=== PATIENT | male | born 1945 | race Caucasian/White ===

== ENCOUNTER 2024-05-08 12:25 | Emergency (ER) | payer MEDICARE ==
[~2024-05-08] VITALS: Ht 182.9 cm; Wt 83.9 kg
[2024-05-08 17:29] LABS: BASOPHILS ABSOLUTE AUTO 0.07 K/mm3 (0.00-0.23); BASOPHILS PERCENT AUTO 1 % (0-2); EOSINOPHILS ABSOLUTE AUTO 0.58 K/mm3 (0.00-0.68); EOSINOPHILS PERCENT AUTO 5 % (0-6); Hematocrit 34.4 % (37.0-53.0); IMMATURE GRAN ABSOLUTE AUTO 0.15 K/mm3 (0.00-0.10); IMMATURE GRAN PERCENT AUTO 1 % (0-1); LYMPHOCYTES ABSOLUTE AUTO 2.02 K/mm3 (0.84-5.20); LYMPHOCYTES PERCENT AUTO 17 % (21-46); MONOCYTES ABSOLUTE AUTO 0.86 K/mm3 (0.16-1.47); MONOCYTES PERCENT AUTO 7 % (4-13); Mean Corpuscular HGB 34.6 pg (26.0-34.0); Mean Corpuscular HGB Conc 34.9 g/dL (31.5-36.5); Mean Corpuscular Volume 99 fL (80-100); NEUTROPHILS ABSOLUTE AUTO 8.32 K/mm3 (1.96-9.15); NEUTROPHILS PERCENT AUTO 69 % (41-73); Platelet Count 160 K/mm3 (150-400); RDW Coefficient Variation 14.5 % (11.7-14.2); RDW Standard Deviation 52.5 fL (35.1-46.3); Red Blood Cell Count 3.47 M/mm3 (4.30-5.90)
[2024-05-08 17:48] LABS: Albumin, Blood 3.2 g/dL (3.4-5.0); Albumin/Globulin Ratio 0.8 (0.8-1.8); Bilirubin, Total 0.8 mg/dL (0.1-1.0); Bun/Creatinine Ratio 18.7 (12.0-20.0); Calcium, Blood 9.3 mg/dL (8.5-10.1); Creatinine, Blood 0.86 mg/dL (0.60-1.20); Globulin, Blood 3.8 g/dL (2.2-4.0); Potassium, Blood 3.7 mmol/L (3.5-5.5)
== END 2024-05-08 20:43 | disposition short-term general hospital (02) ==
LOC: ER 12:25
PROVIDERS: Emergency Medicine
DX: G06.2 Extradural and subdural abscess, unspecified (principal)
CPT/HCPCS: 36415; 70450; 80053; 85025; 99284-25

== ENCOUNTER → 2024-05-13 | Outpatient (CLI) | payer MEDICARE ==
[2024-05-13 19:43] LABS: Hematocrit 25.1 % (37.0-53.0); Hemoglobin 8.5 g/dL (13.5-17.5); Mean Corpuscular HGB 33.9 pg (26.0-34.0); Mean Corpuscular HGB Conc 33.9 g/dL (31.5-36.5); Mean Corpuscular Volume 100 fL (80-100); Mean Platelet Volume 10.6 fL (9.1-12.4); Platelet Count 150 K/mm3 (150-400); RDW Coefficient Variation 14.2 % (11.7-14.2); RDW Standard Deviation 51.6 fL (35.1-46.3); Red Blood Cell Count 2.51 M/mm3 (4.30-5.90); White Blood Cell Count 7.85 K/mm3 (4.00-11.30)
[2024-05-13 20:06] LABS: C-REACTIVE PROTEIN, EXT RANGE 1.05 mg/dL (0.000-0.300)
[2024-05-13 20:09] LABS: Albumin, Blood 2.6 g/dL (3.4-5.0); Albumin/Globulin Ratio 0.9 (0.8-1.8); Bilirubin, Total 0.7 mg/dL (0.1-1.0); Bun/Creatinine Ratio 20.7 (12.0-20.0); Calcium, Blood 8.6 mg/dL (8.5-10.1); Creatinine, Blood 0.82 mg/dL (0.60-1.20); Globulin, Blood 2.8 g/dL (2.2-4.0); Potassium, Blood 3.9 mmol/L (3.5-5.5); Total Protein, Blood 5.4 g/dL (6.4-8.2)
== END | disposition home or self-care (01) ==
LOC: LAB 18:26 → LAB SHORT 18:26
PROVIDERS: Family Medicine
DX: G06.2 Extradural and subdural abscess, unspecified (principal)
CPT/HCPCS: 80053; 85027; 86140

== ENCOUNTER → 2024-05-17 | Outpatient (CLI) | payer MEDICARE ==
[2024-05-17 19:11] LABS: BASOPHILS ABSOLUTE AUTO 0.05 K/mm3 (0.00-0.23); BASOPHILS PERCENT AUTO 1 % (0-2); EOSINOPHILS ABSOLUTE AUTO 0.32 K/mm3 (0.00-0.68); EOSINOPHILS PERCENT AUTO 5 % (0-6); Hematocrit 25.1 % (37.0-53.0); Hemoglobin 8.5 g/dL (13.5-17.5); IMMATURE GRAN ABSOLUTE AUTO 0.21 K/mm3 (0.00-0.10); IMMATURE GRAN PERCENT AUTO 3 % (0-1); LYMPHOCYTES ABSOLUTE AUTO 0.91 K/mm3 (0.84-5.20); LYMPHOCYTES PERCENT AUTO 13 % (21-46); MONOCYTES ABSOLUTE AUTO 0.66 K/mm3 (0.16-1.47); MONOCYTES PERCENT AUTO 10 % (4-13); Mean Corpuscular HGB 34.1 pg (26.0-34.0); Mean Corpuscular HGB Conc 33.9 g/dL (31.5-36.5); Mean Corpuscular Volume 101 fL (80-100); Mean Platelet Volume 10.7 fL (9.1-12.4); NEUTROPHILS ABSOLUTE AUTO 4.74 K/mm3 (1.96-9.15); NEUTROPHILS PERCENT AUTO 69 % (41-73); Platelet Count 158 K/mm3 (150-400); RDW Coefficient Variation 14.6 % (11.7-14.2); RDW Standard Deviation 52.2 fL (35.1-46.3); Red Blood Cell Count 2.49 M/mm3 (4.30-5.90); White Blood Cell Count 6.89 K/mm3 (4.00-11.30)
[2024-05-17 21:03] LABS: Albumin, Blood 2.8 g/dL (3.4-5.0); Bilirubin, Total 0.5 mg/dL (0.1-1.0); Bun/Creatinine Ratio 22.2 (12.0-20.0); C-REACTIVE PROTEIN, EXT RANGE 0.486 mg/dL (0.000-0.300); Calcium, Blood 8.9 mg/dL (8.5-10.1); Creatinine, Blood 0.77 mg/dL (0.60-1.20); Globulin, Blood 2.9 g/dL (2.2-4.0); Potassium, Blood 4.1 mmol/L (3.5-5.5); Total Protein, Blood 5.7 g/dL (6.4-8.2)
== END ==
LOC: LAB 18:17 → LAB SHORT 18:17
PROVIDERS: Physician Assistant
DX: G06.2 Extradural and subdural abscess, unspecified (principal); Z79.2 Long term (current) use of antibiotics
CPT/HCPCS: 80053; 85025; 86140

== ENCOUNTER → 2024-05-24 | Outpatient (CLI) | payer MEDICARE ==
[2024-05-24 13:22] LABS: BASOPHILS ABSOLUTE AUTO 0.06 K/mm3 (0.00-0.23); BASOPHILS PERCENT AUTO 1 % (0-2); EOSINOPHILS ABSOLUTE AUTO 0.24 K/mm3 (0.00-0.68); EOSINOPHILS PERCENT AUTO 4 % (0-6); Hematocrit 27.7 % (37.0-53.0); Hemoglobin 9.3 g/dL (13.5-17.5); IMMATURE GRAN ABSOLUTE AUTO 0.07 K/mm3 (0.00-0.10); IMMATURE GRAN PERCENT AUTO 1 % (0-1); LYMPHOCYTES ABSOLUTE AUTO 0.91 K/mm3 (0.84-5.20); LYMPHOCYTES PERCENT AUTO 17 % (21-46); MONOCYTES ABSOLUTE AUTO 0.46 K/mm3 (0.16-1.47); MONOCYTES PERCENT AUTO 8 % (4-13); Mean Corpuscular HGB 33.8 pg (26.0-34.0); Mean Corpuscular HGB Conc 33.6 g/dL (31.5-36.5); Mean Corpuscular Volume 101 fL (80-100); Mean Platelet Volume 10.1 fL (9.1-12.4); NEUTROPHILS ABSOLUTE AUTO 3.75 K/mm3 (1.96-9.15); NEUTROPHILS PERCENT AUTO 68 % (41-73); Platelet Count 126 K/mm3 (150-400); RDW Coefficient Variation 15.9 % (11.7-14.2); RDW Standard Deviation 57.7 fL (35.1-46.3); Red Blood Cell Count 2.75 M/mm3 (4.30-5.90); White Blood Cell Count 5.49 K/mm3 (4.00-11.30)
[2024-05-24 14:27] LABS: Alanine Aminotransfer (ALT/SGP 40 U/L (12-78); Albumin, Blood 2.9 g/dL (3.4-5.0); Albumin/Globulin Ratio 0.9 (0.8-1.8); Alk Phos 102 U/L (50-136); Anion Gap 8 mmol/L (3-11); Aspartate Aminotrans (AST/SGOT 33 U/L (12-37); Bilirubin, Total 0.5 mg/dL (0.1-1.0); Blood Urea Nitrogen 17 mg/dL (8-24); Bun/Creatinine Ratio 21.2 (12.0-20.0); C-REACTIVE PROTEIN, EXT RANGE <0.290 mg/dL (0.000-0.300); CO2, Blood 26 mmol/L (21-32); Calcium, Blood 8.8 mg/dL (8.5-10.1); Chloride, Blood 115 mmol/L (98-108); Globulin, Blood 3.3 g/dL (2.2-4.0); Glomerular Filtration Rate 90 (60-); Glucose, Blood 126 mg/dL (70-99); Potassium, Blood 4.2 mmol/L (3.5-5.5); Sodium, Blood 145 mmol/L (136-145); Total Protein, Blood 6.2 g/dL (6.4-8.2)
== END | disposition home or self-care (01) ==
LOC: LAB SHORT 12:17 → LAB 12:17
PROVIDERS: Physician Assistant
DX: G06.2 Extradural and subdural abscess, unspecified (principal); Z79.2 Long term (current) use of antibiotics
CPT/HCPCS: 80053; 85025; 86140

== ENCOUNTER → 2024-05-31 | Outpatient (CLI) | payer MEDICARE ==
[2024-05-31 14:22] LABS: BASOPHILS ABSOLUTE AUTO 0.06 K/mm3 (0.00-0.23); BASOPHILS PERCENT AUTO 1 % (0-2); EOSINOPHILS ABSOLUTE AUTO 0.31 K/mm3 (0.00-0.68); EOSINOPHILS PERCENT AUTO 5 % (0-6); Hematocrit 27.8 % (37.0-53.0); Hemoglobin 9.3 g/dL (13.5-17.5); IMMATURE GRAN ABSOLUTE AUTO 0.08 K/mm3 (0.00-0.10); IMMATURE GRAN PERCENT AUTO 1 % (0-1); LYMPHOCYTES ABSOLUTE AUTO 0.93 K/mm3 (0.84-5.20); LYMPHOCYTES PERCENT AUTO 16 % (21-46); MONOCYTES ABSOLUTE AUTO 0.66 K/mm3 (0.16-1.47); MONOCYTES PERCENT AUTO 11 % (4-13); Mean Corpuscular HGB 34.2 pg (26.0-34.0); Mean Corpuscular HGB Conc 33.5 g/dL (31.5-36.5); Mean Corpuscular Volume 102 fL (80-100); Mean Platelet Volume 11.1 fL (9.1-12.4); NEUTROPHILS ABSOLUTE AUTO 3.94 K/mm3 (1.96-9.15); NEUTROPHILS PERCENT AUTO 66 % (41-73); Platelet Count 94 K/mm3 (150-400); RDW Coefficient Variation 15.9 % (11.7-14.2); RDW Standard Deviation 59.4 fL (35.1-46.3); Red Blood Cell Count 2.72 M/mm3 (4.30-5.90); White Blood Cell Count 5.98 K/mm3 (4.00-11.30)
[2024-05-31 15:06] LABS: Albumin, Blood 2.9 g/dL (3.4-5.0); Bilirubin, Total 0.4 mg/dL (0.1-1.0); Bun/Creatinine Ratio 22.3 (12.0-20.0); Calcium, Blood 9.1 mg/dL (8.5-10.1); Creatinine, Blood 0.72 mg/dL (0.60-1.20); Potassium, Blood 3.9 mmol/L (3.5-5.5); Total Protein, Blood 5.9 g/dL (6.4-8.2)
== END ==
LOC: LAB SHORT 10:38 → LAB 10:38
PROVIDERS: Student in an Organized Health Care Education/Training Program
DX: T81.41XA Infection following a procedure, superficial incisional surgical site, initial encounter (principal); Z79.2 Long term (current) use of antibiotics; G06.2 Extradural and subdural abscess, unspecified
CPT/HCPCS: 80053; 85025; 86140

== ENCOUNTER → 2024-06-07 | Outpatient (CLI) | payer MEDICARE ==
[2024-06-07 18:51] LABS: BASOPHILS ABSOLUTE AUTO 0.06 K/mm3 (0.00-0.23); BASOPHILS PERCENT AUTO 1 % (0-2); EOSINOPHILS ABSOLUTE AUTO 0.23 K/mm3 (0.00-0.68); EOSINOPHILS PERCENT AUTO 4 % (0-6); Hematocrit 30.5 % (37.0-53.0); Hemoglobin 10.2 g/dL (13.5-17.5); IMMATURE GRAN ABSOLUTE AUTO 0.05 K/mm3 (0.00-0.10); IMMATURE GRAN PERCENT AUTO 1 % (0-1); LYMPHOCYTES ABSOLUTE AUTO 0.99 K/mm3 (0.84-5.20); LYMPHOCYTES PERCENT AUTO 18 % (21-46); MONOCYTES ABSOLUTE AUTO 0.53 K/mm3 (0.16-1.47); MONOCYTES PERCENT AUTO 10 % (4-13); Mean Corpuscular HGB 34.5 pg (26.0-34.0); Mean Corpuscular HGB Conc 33.4 g/dL (31.5-36.5); Mean Corpuscular Volume 103 fL (80-100); Mean Platelet Volume 11.2 fL (9.1-12.4); NEUTROPHILS ABSOLUTE AUTO 3.56 K/mm3 (1.96-9.15); NEUTROPHILS PERCENT AUTO 66 % (41-73); Platelet Count 94 K/mm3 (150-400); RDW Coefficient Variation 15.9 % (11.7-14.2); RDW Standard Deviation 59.5 fL (35.1-46.3); Red Blood Cell Count 2.96 M/mm3 (4.30-5.90); White Blood Cell Count 5.42 K/mm3 (4.00-11.30)
[2024-06-07 21:05] LABS: Alanine Aminotransfer (ALT/SGP 56 U/L (12-78); Albumin, Blood 3.1 g/dL (3.4-5.0); Alk Phos 117 U/L (50-136); Anion Gap 9 mmol/L (3-11); Aspartate Aminotrans (AST/SGOT 53 U/L (12-37); Bilirubin, Total 0.5 mg/dL (0.1-1.0); Blood Urea Nitrogen 18 mg/dL (8-24); Bun/Creatinine Ratio 23.7 (12.0-20.0); C-REACTIVE PROTEIN, EXT RANGE <0.290 mg/dL (0.000-0.300); CO2, Blood 25 mmol/L (21-32); Calcium, Blood 8.9 mg/dL (8.5-10.1); Chloride, Blood 113 mmol/L (98-108); Creatinine, Blood 0.76 mg/dL (0.60-1.20); Globulin, Blood 3.2 g/dL (2.2-4.0); Glomerular Filtration Rate 91 (60-); Glucose, Blood 98 mg/dL (70-99); Sodium, Blood 143 mmol/L (136-145); Total Protein, Blood 6.3 g/dL (6.4-8.2)
== END | disposition home or self-care (01) ==
LOC: LAB 17:46 → LAB SHORT 17:46
PROVIDERS: Physician Assistant
DX: Z79.2 Long term (current) use of antibiotics (principal); G06.2 Extradural and subdural abscess, unspecified; T81.41XA Infection following a procedure, superficial incisional surgical site, initial encounter
CPT/HCPCS: 80053; 85025; 86140

== ENCOUNTER → 2024-06-14 | Outpatient (CLI) | payer MEDICARE ==
[2024-06-14 13:26] LABS: BASOPHILS ABSOLUTE AUTO 0.06 K/mm3 (0.00-0.23); BASOPHILS PERCENT AUTO 1 % (0-2); EOSINOPHILS ABSOLUTE AUTO 0.19 K/mm3 (0.00-0.68); EOSINOPHILS PERCENT AUTO 3 % (0-6); Hematocrit 29.4 % (37.0-53.0); Hemoglobin 9.9 g/dL (13.5-17.5); IMMATURE GRAN ABSOLUTE AUTO 0.05 K/mm3 (0.00-0.10); IMMATURE GRAN PERCENT AUTO 1 % (0-1); LYMPHOCYTES ABSOLUTE AUTO 0.82 K/mm3 (0.84-5.20); LYMPHOCYTES PERCENT AUTO 14 % (21-46); MONOCYTES PERCENT AUTO 10 % (4-13); Mean Corpuscular HGB 34.1 pg (26.0-34.0); Mean Corpuscular HGB Conc 33.7 g/dL (31.5-36.5); Mean Corpuscular Volume 101 fL (80-100); Mean Platelet Volume 10.6 fL (9.1-12.4); NEUTROPHILS ABSOLUTE AUTO 4.33 K/mm3 (1.96-9.15); NEUTROPHILS PERCENT AUTO 72 % (41-73); Platelet Count 124 K/mm3 (150-400); RDW Coefficient Variation 15.1 % (11.7-14.2); RDW Standard Deviation 56.5 fL (35.1-46.3); White Blood Cell Count 6.05 K/mm3 (4.00-11.30)
[2024-06-14 15:27] LABS: C-REACTIVE PROTEIN, EXT RANGE <0.290 mg/dL (0.000-0.300)
[2024-06-14 15:30] LABS: Alanine Aminotransfer (ALT/SGP 36 U/L (12-78); Albumin, Blood 2.8 g/dL (3.4-5.0); Albumin/Globulin Ratio 0.8 (0.8-1.8); Alk Phos 93 U/L (50-136); Anion Gap 11 mmol/L (3-11); Aspartate Aminotrans (AST/SGOT 29 U/L (12-37); Bilirubin, Total 0.6 mg/dL (0.1-1.0); Blood Urea Nitrogen 17 mg/dL (8-24); Bun/Creatinine Ratio 21.4 (12.0-20.0); CO2, Blood 24 mmol/L (21-32); Calcium, Blood 8.8 mg/dL (8.5-10.1); Chloride, Blood 111 mmol/L (98-108); Globulin, Blood 3.3 g/dL (2.2-4.0); Glomerular Filtration Rate 90 (60-); Glucose, Blood 134 mg/dL (70-99); Potassium, Blood 3.6 mmol/L (3.5-5.5); Sodium, Blood 142 mmol/L (136-145); Total Protein, Blood 6.1 g/dL (6.4-8.2)
== END ==
LOC: LAB 12:27 → LAB SHORT 12:27
PROVIDERS: Physician Assistant
DX: G06.2 Extradural and subdural abscess, unspecified (principal); Z79.2 Long term (current) use of antibiotics
CPT/HCPCS: 80053; 85025; 86140

== ENCOUNTER → 2024-06-21 | Outpatient (CLI) | payer MEDICARE ==
[2024-06-21 19:03] LABS: BASOPHILS ABSOLUTE AUTO 0.04 K/mm3 (0.00-0.23); BASOPHILS PERCENT AUTO 1 % (0-2); EOSINOPHILS ABSOLUTE AUTO 0.23 K/mm3 (0.00-0.68); EOSINOPHILS PERCENT AUTO 4 % (0-6); Hemoglobin 9.7 g/dL (13.5-17.5); IMMATURE GRAN ABSOLUTE AUTO 0.06 K/mm3 (0.00-0.10); IMMATURE GRAN PERCENT AUTO 1 % (0-1); LYMPHOCYTES ABSOLUTE AUTO 0.96 K/mm3 (0.84-5.20); LYMPHOCYTES PERCENT AUTO 17 % (21-46); MONOCYTES ABSOLUTE AUTO 0.56 K/mm3 (0.16-1.47); MONOCYTES PERCENT AUTO 10 % (4-13); Mean Corpuscular HGB 33.3 pg (26.0-34.0); Mean Corpuscular HGB Conc 33.4 g/dL (31.5-36.5); Mean Corpuscular Volume 100 fL (80-100); Mean Platelet Volume 10.5 fL (9.1-12.4); NEUTROPHILS ABSOLUTE AUTO 3.74 K/mm3 (1.96-9.15); NEUTROPHILS PERCENT AUTO 67 % (41-73); Platelet Count 120 K/mm3 (150-400); RDW Coefficient Variation 14.6 % (11.7-14.2); RDW Standard Deviation 52.4 fL (35.1-46.3); Red Blood Cell Count 2.91 M/mm3 (4.30-5.90); White Blood Cell Count 5.59 K/mm3 (4.00-11.30)
[2024-06-21 19:53] LABS: Albumin, Blood 2.9 g/dL (3.4-5.0); Albumin/Globulin Ratio 0.9 (0.8-1.8); Bilirubin, Total 0.5 mg/dL (0.1-1.0); Bun/Creatinine Ratio 19.7 (12.0-20.0); C-REACTIVE PROTEIN, EXT RANGE 0.41 mg/dL (0.000-0.300); Creatinine, Blood 0.66 mg/dL (0.60-1.20); Globulin, Blood 3.1 g/dL (2.2-4.0); Potassium, Blood 3.3 mmol/L (3.5-5.5)
== END | disposition home or self-care (01) ==
LOC: LAB 18:06 → LAB SHORT 18:06
PROVIDERS: Physician Assistant
DX: T81.41XA Infection following a procedure, superficial incisional surgical site, initial encounter (principal); G06.2 Extradural and subdural abscess, unspecified; Z79.2 Long term (current) use of antibiotics
CPT/HCPCS: 80053; 85025; 86140

== ENCOUNTER 2024-12-11 06:38 | Inpatient (IN) | payer MEDICARE ==
[~2024-12-11] VITALS: Ht 177.8 cm; Wt 84.9 kg
[2024-12-11] VITALS (28 sets, daily range): BP systolic 103–139; BP diastolic 57–89
[2024-12-11] MEDS ORDERED: NS 1,000 ML IV SCH (07:25)
[2024-12-11] MEDS ORDERED: CefTRIAXone Sodium 1,000 MG in NS 50 ML IV ONE (08:40)
[2024-12-11 08:54] LABS: BASOPHILS ABSOLUTE AUTO 0.02 K/mm3 (0.00-0.23); BASOPHILS PERCENT AUTO 0 % (0-2); EOSINOPHILS ABSOLUTE AUTO 0.01 K/mm3 (0.00-0.68); EOSINOPHILS PERCENT AUTO 0 % (0-6); Hematocrit 29.6 % (37.0-53.0); Hemoglobin 10.0 g/dL (13.5-17.5); IMMATURE GRAN ABSOLUTE AUTO 0.28 K/mm3 (0.00-0.10); IMMATURE GRAN PERCENT AUTO 2 % (0-1); LYMPHOCYTES ABSOLUTE AUTO 1.06 K/mm3 (0.84-5.20); LYMPHOCYTES PERCENT AUTO 6 % (21-46); MONOCYTES ABSOLUTE AUTO 1.26 K/mm3 (0.16-1.47); MONOCYTES PERCENT AUTO 7 % (4-13); Mean Corpuscular HGB Conc 33.8 g/dL (31.5-36.5); Mean Corpuscular Volume 93 fL (80-100); NEUTROPHILS ABSOLUTE AUTO 14.93 K/mm3 (1.96-9.15); NEUTROPHILS PERCENT AUTO 85 % (41-73); NRBC ABSOLUTE 0.00 K/mm3 (0.00-0.02); NRBC Auto 0.0 /100 WBC (0.0-0.2); Platelet Count 134 K/mm3 (150-400); RDW Coefficient Variation 16.0 % (11.7-14.2); RDW Standard Deviation 55.0 fL (35.1-46.3)
[2024-12-11 08:57] LABS: pH Blood Venous 7.39 (7.34-7.37)
[2024-12-11 09:17] LABS: Alanine Aminotransfer (ALT/SGP 46.0 U/L (12-78); Albumin, Blood 2.6 g/dL (3.4-5.0); Albumin/Globulin Ratio 0.8 (0.8-1.8); Anion Gap 9.0 mmol/L (3-11); Aspartate Aminotrans (AST/SGOT 48.0 U/L (12-37); Bilirubin, Total 1.9 mg/dL (0.1-1.0); Blood Urea Nitrogen 23.0 mg/dL (8-24); CO2, Blood 23.0 mmol/L (21-32); Calcium, Blood 8.5 mg/dL (8.5-10.1); Chloride, Blood 110.0 mmol/L (98-108); Creatinine, Blood 1.01 mg/dL (0.60-1.20); Globulin, Blood 3.4 g/dL (2.2-4.0); Glucose, Blood 148.0 mg/dL (70-99); Potassium, Blood 3.6 mmol/L (3.5-5.5); Sodium, Blood 138.0 mmol/L (136-145); Total Protein, Blood 6.0 g/dL (6.4-8.2)
[2024-12-11 10:20] LABS: Influenza A, PCR NEGATIVE (NEGATIVE); Influenza B, PCR NEGATIVE (NEGATIVE); Resp Syncytial Virus, PCR NEGATIVE (NEGATIVE); SARS-Cov-2 (COVID-19) PCR, MMC NEGATIVE (NEGATIVE)
[2024-12-11 14:08] LABS: Source, Urine Clean Catch
[2024-12-11 14:14] LABS: Bilirubin, Urine Neg (Neg); Color, Urine Yellow (P-Yellow); Glucose Qualitative, Urine Neg (Neg); Ketones, Urine Neg (Neg); Leukocyte Esterase, Urine Neg (Neg); Protein, Urine 2+ (Neg); Specific Gravity, Urine 1.010 (1.003-1.022); Urobilinogen, Urine NORM (Normal)
[2024-12-11 14:23] LABS: White Blood Cells, Urine 0-2 /hpf (0-5)
[2024-12-11] MEDS ORDERED: Lidocaine 2% Jelly Uro-Jet UR ONE (16:10)
[2024-12-11 17:30] LABS: Source, Urine Foley catheter
[2024-12-11 17:34] LABS: Bilirubin, Urine Neg (Neg); Color, Urine Yellow (P-Yellow); Glucose Qualitative, Urine Neg (Neg); Ketones, Urine Neg (Neg); Leukocyte Esterase, Urine Neg (Neg); Protein, Urine 2+ (Neg); Specific Gravity, Urine 1.015 (1.003-1.022); Urobilinogen, Urine NORM (Normal)
[2024-12-11 17:41] LABS: Red Blood Cells, Urine 25-50 /hpf (0-2); White Blood Cells, Urine 0-2 /hpf (0-5)
[2024-12-11 18:26] LABS: Influenza A/2009-H1 Not Detected (NOT DETECT); SARS-Cov-2 (COVID-19), BioFire Not Detected (NOT DETECT)
[2024-12-11] MEDS ORDERED: Crestor40 MG PO (18:28)
[2024-12-11] MEDS ORDERED: TAMS.4ER PO (18:28)
[2024-12-11] MEDS ORDERED: Primidone50 MG PO (18:28)
[2024-12-11] MEDS ORDERED: ALBU8HFA2 INH (18:29)
[2024-12-11] MEDS ORDERED: SERT50 PO (18:30)
[2024-12-11] MEDS ORDERED: PRED1 PO (18:32)
[2024-12-11] MEDS ORDERED: IRON18 M1 PO (18:33)
--- NOTE | 2024-12-11 18:45 | NUR ---
PT ARRIVED TO THE UNIT AT 1715 TO ICU 12, HE IS ASKING TO MOVE HIMSELF AND STAND UP. WE ASKED THAT HE LET US HE WAS ON OXYMASK AND NASAL CANNULA, HE EXPRESSED DISAPPOINTMENT. PT MOVED TO BED, CLEANED UP AND PLACED ON HI JOSE ALEJANDRO NC 55L 90%, PT STATES THAT HE HAS NOTICED THAT HIS FEET HAVE BEEN SWELLING. GOOD PULSES, TV TECHNICIAN TEMPERATURE. SKIN WITH BRUISING IN VARIOUS STAGES RELATED TO RECENT FALLS. PHOTOS TAKEN AND PLACED ON CHART. HAS BILATERAL HIP BRUISES, ELBOW AND FOREARM, FRONT/LATERAL RIGHT KNEE BRUISING. HE IS C/O "STARVING" EXPLAINED ABOUT HI JOSE ALEJANDRO NC AND ASPIRATION RISKS, NEEDS RE-INFORCEMENT. PLEASANT. VERY HARD OF HEARING. DAUGHTER AND GRANDSON HAVE COME TO VISIT, REVIEW OF HOME MEDICATIONS. CAR WITH GOOD URINE OUTPUT FROM DIURETICS. SATS >90%.
[2024-12-11] MEDS ORDERED: Lactobacil 2-S.Thermo-Bifido 1 1 Cap PO SCH (21:00)
--- NOTE | 2024-12-11 22:04 | NUR ---
ASSUME CARE: PT A/Ox4 AND ABLE TO MAKE NEEDS KNOWN. VSS, MONITOR SHOWS SR W/PVCs. SPO2>90% ON HIGH FLOW, SETTINGS 55L AT 92%. PT DESATS W/ACTIVITY 70-80%, BUT RECOVERS QUICKLY. PT ABLE TO TOLERATE SIPS OF WATER W/NO ISSUE, AND TAKE MEDS PO W/WATER. 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 CAR DRAINING YELLOW URINE TO GRAVITY. PT INCONT OF BOWEL, ATTENDS IN PLACE. WILL UPDATE NEEDED.
[2024-12-12] VITALS (76 sets, daily range): BP systolic 92–129; BP diastolic 52–84
[2024-12-12 03:41] LABS: BASOPHILS ABSOLUTE AUTO 0.01 K/mm3 (0.00-0.23); BASOPHILS PERCENT AUTO 0 % (0-2); EOSINOPHILS ABSOLUTE AUTO 0.00 K/mm3 (0.00-0.68); EOSINOPHILS PERCENT AUTO 0 % (0-6); Hematocrit 25.5 % (37.0-53.0); Hemoglobin 8.6 g/dL (13.5-17.5); IMMATURE GRAN ABSOLUTE AUTO 0.14 K/mm3 (0.00-0.10); IMMATURE GRAN PERCENT AUTO 1 % (0-1); LYMPHOCYTES ABSOLUTE AUTO 0.51 K/mm3 (0.84-5.20); LYMPHOCYTES PERCENT AUTO 4 % (21-46); MONOCYTES ABSOLUTE AUTO 0.67 K/mm3 (0.16-1.47); MONOCYTES PERCENT AUTO 5 % (4-13); Mean Corpuscular HGB Conc 33.7 g/dL (31.5-36.5); Mean Corpuscular Volume 92 fL (80-100); NEUTROPHILS ABSOLUTE AUTO 11.04 K/mm3 (1.96-9.15); NEUTROPHILS PERCENT AUTO 89 % (41-73); NRBC ABSOLUTE 0.00 K/mm3 (0.00-0.02); NRBC Auto 0.0 /100 WBC (0.0-0.2); Platelet Count 83 K/mm3 (150-400); RDW Coefficient Variation 16.1 % (11.7-14.2); RDW Standard Deviation 53.3 fL (35.1-46.3)
[2024-12-12 04:03] LABS: Alanine Aminotransfer (ALT/SGP 45.0 U/L (12-78); Albumin, Blood 2.2 g/dL (3.4-5.0); Albumin/Globulin Ratio 0.7 (0.8-1.8); Anion Gap 8.0 mmol/L (3-11); Aspartate Aminotrans (AST/SGOT 74.0 U/L (12-37); Bilirubin, Total 1.3 mg/dL (0.1-1.0); Blood Urea Nitrogen 25.0 mg/dL (8-24); CO2, Blood 28.0 mmol/L (21-32); Calcium, Blood 7.7 mg/dL (8.5-10.1); Chloride, Blood 110.0 mmol/L (98-108); Creatinine, Blood 1.08 mg/dL (0.60-1.20); Globulin, Blood 3.2 g/dL (2.2-4.0); Glucose, Blood 132.0 mg/dL (70-99); Potassium, Blood 3.0 mmol/L (3.5-5.5); Sodium, Blood 143.0 mmol/L (136-145); Total Protein, Blood 5.4 g/dL (6.4-8.2)
--- NOTE | 2024-12-12 05:19 | NUR ---
SHIFT SUMMARY: PT A/Ox4 AND ABLE TO MAKE NEEDS KNOWN, AND SLEPT T/O THE NIGHT. VSS, MONITOR SHOWS SR W/PVCs. SPO2>90% ON HIGH FLOW 55L AT 85%. PT CONTINUES TO DESAT W/ CARE AND W/TALKING. CAR IN PLACE DRAINING TO GRAVITY. CALL LIGHT IN REACH, BED ALARM ON. WILL REPORT TO ONCOMING RN.
[2024-12-12] MEDS ORDERED: Enoxaparin 40 MG/0.4 ML SYR SC SCH (09:00)
[2024-12-12] MEDS ORDERED: CefTRIAXone Sodium 1,000 MG in NS 100 ML IV SCH (09:00)
--- NOTE | 2024-12-12 16:13 | NUR ---
JESSIE WAS TAKEN OFF BIPAP AROUND LUNCHTIME, HE TOOK IN ABOUT 80% OF HIS MEAL AND WAS VERY THANKFUL AND APPRECIATIVE FOR THE THE FOOD. HE TOOK HIS WATER IN WELL, FOCUSED ON HIS SWALLOW AND DID WELL WITHOUT DESATURATING. HE REMAINS ON THE AIRVO, IS RESTING QUIETLY AT THIS TIME.
--- NOTE | 2024-12-12 17:58 | NUR ---
JESSIE SPENT THE AFTERNOON ON THE HI FLOW, HE WAS EATING HIS DINNER AND BECAME SHORT OF BREATH. HE HAD A VERY DIFFICULT TIME RECOVERING. ONCE HE RECOVERED HE WAS READY TO BE FINISHED EATING AND RETURN TO BIPAP. BIPAP DOWN TO 60% FIO2. TOLERATING WELL WITH SATS AT 93%. HE HAS BEEN IN AND OUT OF AFIB TODAY, WHEN IN SINUS HE HAS PAC'S. BP REMAINS STABLE.
[2024-12-13] VITALS (13 sets, daily range): BP systolic 93–121; BP diastolic 52–76
[2024-12-13 05:33] LABS: BASOPHILS ABSOLUTE AUTO 0.00 K/mm3 (0.00-0.23); BASOPHILS PERCENT AUTO 0 % (0-2); EOSINOPHILS ABSOLUTE AUTO 0.00 K/mm3 (0.00-0.68); EOSINOPHILS PERCENT AUTO 0 % (0-6); Hematocrit 24.7 % (37.0-53.0); Hemoglobin 8.4 g/dL (13.5-17.5); IMMATURE GRAN ABSOLUTE AUTO 0.07 K/mm3 (0.00-0.10); IMMATURE GRAN PERCENT AUTO 1 % (0-1); LYMPHOCYTES ABSOLUTE AUTO 0.42 K/mm3 (0.84-5.20); LYMPHOCYTES PERCENT AUTO 4 % (21-46); MONOCYTES ABSOLUTE AUTO 0.47 K/mm3 (0.16-1.47); MONOCYTES PERCENT AUTO 4 % (4-13); Mean Corpuscular HGB Conc 34.0 g/dL (31.5-36.5); Mean Corpuscular Volume 93 fL (80-100); NEUTROPHILS ABSOLUTE AUTO 9.72 K/mm3 (1.96-9.15); NEUTROPHILS PERCENT AUTO 91 % (41-73); NRBC ABSOLUTE 0.00 K/mm3 (0.00-0.02); NRBC Auto 0.0 /100 WBC (0.0-0.2); RDW Coefficient Variation 15.9 % (11.7-14.2); RDW Standard Deviation 53.7 fL (35.1-46.3)
[2024-12-13 05:41] LABS: Platelet Count 46 K/mm3 (150-400)
[2024-12-13 05:56] LABS: Alanine Aminotransfer (ALT/SGP 76.0 U/L (12-78); Albumin, Blood 2.0 g/dL (3.4-5.0); Albumin/Globulin Ratio 0.7 (0.8-1.8); Anion Gap 8.0 mmol/L (3-11); Aspartate Aminotrans (AST/SGOT 132.0 U/L (12-37); Bilirubin, Total 1.3 mg/dL (0.1-1.0); Blood Urea Nitrogen 33.0 mg/dL (8-24); CO2, Blood 29.0 mmol/L (21-32); Calcium, Blood 7.5 mg/dL (8.5-10.1); Chloride, Blood 106.0 mmol/L (98-108); Creatinine, Blood 1.11 mg/dL (0.60-1.20); Globulin, Blood 2.9 g/dL (2.2-4.0); Glucose, Blood 169.0 mg/dL (70-99); Potassium, Blood 2.5 mmol/L (3.5-5.5); Sodium, Blood 140.0 mmol/L (136-145); Total Protein, Blood 4.9 g/dL (6.4-8.2)
--- NOTE | 2024-12-13 06:50 | NUR ---
NO ACUTE EVENTS OVERNIGHT. PT SWITCHED FROM BIPAP TO HI-FLOW NASAL CANNULA. SETTINGS 60L AT 95%. PT SPO2 WOULD PERIODICALLY DIP TO 70% BUT WOULD REBOUND BACK TO >92% WHEN PT WAS REPOSTIONING HIMSELF IN BED. VSS. PT IS PLEASANT AND JOVIAL. BED IS LOCKED AND IN LOWEST POSITION. CALL LIGHT WITHIN REACH. CAR PATANT AND DRAINING.
[2024-12-13] MEDS ORDERED: Ipratropium/Albuterol SulF 2.5-0.5MG/3 ML Amp INH SCH (09:30)
[2024-12-13] MEDS ORDERED: Albuterol 2.5 MG/3 ML VIAL INH PRN (09:30)
--- NOTE | 2024-12-13 14:13 | NUR ---
MORNING SUMMARY THE PT IS A&OX4, VERY [place], 2P ASSIST IN BED, Q2 TURN, AND HE CAN MAKE HIS NEEDS KNOWN. THE PT STARTED THE MORNING ON THE AIRVO 60L @ 90% FI02 W/ SP02 >93%. ABOUT 0800 HE WAS ATTEMPTING TO EAT BREAKFAST AND DESATURATED TO THE MID 70'S. PT WAS UNABLE TO RECOVER WITH DEEP BREATHING AND COACHING. HE WAS PLACED ON THE BIPAP 12/5 @ 70%. AND HE NEEDED 100% FOR TWO MINUTES TO BE ABLE TO RECOVER. ON Q2 TURNS THE PT WOULD DESATURATE TO THE 70'S WELL. THE PT REMAINS ON THE BIPAP MAJORITY OF THE MORNING D/T PULMONARY FRAGILITY. PULOMONOLGY CONSULTED AND SAW THE PT THIS MORNING. THE PT HAS HAD SPURTS OF SOB T/O THE MORNING. ON TELE HE HAS BEEN SR 70'S-80'S, AND BP REMAINS STABLE. HE HAS DENIED ANY ANGINA OR CHEST PRESSURE, CAR REMAINS IN PLACE, AND DRAINING TO GRAVITY. THE PT'S DAUGHTER HAS BEEN AT BEDSIDE AND WAS UPDATED ON CARE. SEE NOTES FOR UPDATES.
[2024-12-13 14:19] LABS: Magnesium, Blood 2.0 mg/dL (1.6-2.4)
[2024-12-13 14:20] LABS: Potassium, Blood 2.8 mmol/L (3.5-5.5)
--- NOTE | 2024-12-13 17:00 | NUR ---
PT IS BACK TO ICU STATUS. HE IS HIGH RISK FOR NEEDING TO BE INTUBATED PER DR. SPRAGUE.
[2024-12-13] MEDS ORDERED: Potassium Chl 20MEQ/Water100ML 100 ML IV STA (17:10)
[2024-12-13 20:26] LABS: Anion Gap 7.0 mmol/L (3-11); Blood Urea Nitrogen 38.0 mg/dL (8-24); CO2, Blood 29.0 mmol/L (21-32); Calcium, Blood 7.6 mg/dL (8.5-10.1); Chloride, Blood 108.0 mmol/L (98-108); Creatinine, Blood 1.08 mg/dL (0.60-1.20); Glucose, Blood 162.0 mg/dL (70-99); Potassium, Blood 3.0 mmol/L (3.5-5.5); Sodium, Blood 141.0 mmol/L (136-145)
[2024-12-14] VITALS (39 sets, daily range): BP systolic 85–125; BP diastolic 33–93
[2024-12-14 04:33] LABS: BASOPHILS ABSOLUTE AUTO 0.01 K/mm3 (0.00-0.23); BASOPHILS PERCENT AUTO 0 % (0-2); EOSINOPHILS ABSOLUTE AUTO 0.00 K/mm3 (0.00-0.68); EOSINOPHILS PERCENT AUTO 0 % (0-6); Hematocrit 27.8 % (37.0-53.0); Hemoglobin 9.2 g/dL (13.5-17.5); IMMATURE GRAN ABSOLUTE AUTO 0.16 K/mm3 (0.00-0.10); IMMATURE GRAN PERCENT AUTO 1 % (0-1); LYMPHOCYTES ABSOLUTE AUTO 0.57 K/mm3 (0.84-5.20); LYMPHOCYTES PERCENT AUTO 4 % (21-46); MONOCYTES ABSOLUTE AUTO 0.65 K/mm3 (0.16-1.47); MONOCYTES PERCENT AUTO 5 % (4-13); Mean Corpuscular HGB Conc 33.1 g/dL (31.5-36.5); Mean Corpuscular Volume 95 fL (80-100); NEUTROPHILS ABSOLUTE AUTO 11.89 K/mm3 (1.96-9.15); NEUTROPHILS PERCENT AUTO 90 % (41-73); NRBC ABSOLUTE 0.02 K/mm3 (0.00-0.02); NRBC Auto 0.2 /100 WBC (0.0-0.2); RDW Coefficient Variation 16.3 % (11.7-14.2); RDW Standard Deviation 55.9 fL (35.1-46.3)
--- NOTE | 2024-12-14 04:52 | NUR ---
SHIFT SUMMARY: PT REMAINS A&O X4, ABLE TO COMMUNICATE NEEDS AND FOLLOW DIRECTIONS. PT IS VERY [place]. HE HAS HEARING AIDS BUT DOES NOT WANT TO PUT THEM IN HIS EARS DUE TO FEAR OF LOSING THEM. PT STARTED NOC SHIFT ON AIRVO BUT WAS CONTINUOUSLY MOUTH BREATHING AND DE-SATING W/ ACTIVITY (TALKING, DRINKING FLUIDS, TAKING MEDS) INTO SATS <80%. PT PLACED ON BIPAP FOR THE NIGHT W/ INTERMITTENT BREAKS DUE TO NEED FOR MEDICATION ADMINISTRATION. PT BIPAP SETTINGS STARTED AT 12/5 FIO2 65% AND NOW ARE AT 12/5 FIO2 55%. SATS >90%. SBP STABLE W/ SOME SOFT SBP IN HIGH 80S. MAP>65. HR 60-80S. PER DAY SHIFT RN, PT HAS HAD NO BM SINCE 12/11. PT ON BOWEL MEDS. PT HAS CAR, PATENT AND DRAINING TO GRAVITY. PT APPEARS TO BE RESPONDING WELL TO DIURISIS. PIV IN RAC AND POWERGLIDE IN PAZ, SALINE LOCKED AT THIS TIME. THIS RN TO REPORT TO ONCOMING RN AT SHIFT REPORT.
[2024-12-14 04:55] LABS: Platelet Count 28 K/mm3 (150-400)
[2024-12-14 05:16] LABS: Alanine Aminotransfer (ALT/SGP 95.0 U/L (12-78); Albumin, Blood 2.3 g/dL (3.4-5.0); Albumin/Globulin Ratio 0.7 (0.8-1.8); Anion Gap 8.0 mmol/L (3-11); Aspartate Aminotrans (AST/SGOT 128.0 U/L (12-37); Bilirubin, Total 1.7 mg/dL (0.1-1.0); Blood Urea Nitrogen 39.0 mg/dL (8-24); CO2, Blood 27.0 mmol/L (21-32); Calcium, Blood 7.5 mg/dL (8.5-10.1); Chloride, Blood 110.0 mmol/L (98-108); Creatinine, Blood 1.06 mg/dL (0.60-1.20); Globulin, Blood 3.1 g/dL (2.2-4.0); Glucose, Blood 151.0 mg/dL (70-99); Potassium, Blood 3.8 mmol/L (3.5-5.5); Sodium, Blood 141.0 mmol/L (136-145); Total Protein, Blood 5.4 g/dL (6.4-8.2)
[2024-12-14 11:12] LABS: Fibrinogen 107.0 mg/dL (170-430); Prothrombin Time Results 15.3 Sec (9.7-11.5)
[2024-12-14] MEDS ORDERED: FLUDROCORTISON0.1 M1 PO (12:04)
[2024-12-14] MEDS ORDERED: Flonase 0.05% N16 GM (12:05)
[2024-12-14] MEDS ORDERED: FERSU300 PO (12:05)
[2024-12-14] MEDS ORDERED: Artificial Tear15 ML BOTHEYES (12:06)
[2024-12-14] MEDS ORDERED: ASPI81CH PO (12:06)
[2024-12-14] MEDS ORDERED: Vancomycin (Pharmacy Consult) IV SCH (12:35)
--- NOTE | 2024-12-14 17:27 | NUR ---
SHIFT SUMMARY... PATIENT A&OX4. BP STABLE WITH MAPS >65. HR SINUS IN THE 70S-80S. PATIENT ON BIPAP 12/7 55% FIO2 WITH SATS >95%. PATIENT TRIALED AIRVO DURING LUNCH AND AND WAS UNABLE TO MAINTAIN SATS >80%. L/S DIM WITH CRACKLES TO THE LEFT AND CLEAR TO THE RUL AND DIM TO THE RLL. BOWEL TONES HYPOACTIVE. PATIENT HAD LARGE BM TODAY. CATHETER IN PLACE AND PATENT DRAINING YELLOW URINE TO GRAVITY. DAUGHTER AT BEDSIDE TODAY UPDATED ON PLAN OF CARE.
--- NOTE | 2024-12-14 20:30 | NUR ---
ASSUMED CARE AT 1900 PATIENT IS ALERT AND 0RIENTED X3-4, SLOW TO RESPOND AT TIMES AND [place]. FOLLOWS COMMANDS. DENIES PAIN AT THIS TIME, STATES SOME GENERAL DISCOMFORT, PATIENT REPOSITIONED AND STATES HE IS NOW COMFORTABLE. SP02 98% ON BIPAP WITH MASK, 04/02 FI02 55%, RR 20s. PATIENT COMPLAINS OF DRY MOUTH, EDUCATED ON BEING NPO, ORAL CARE DONE AND PATIENT ABLE TO SWISH AND SPIT WATER. HR SR 80s WITH SOME PVCs. BP STABLE, DENIES CP/PRESSURE. CAR PATENT AND DRAINING TO GRAVITY. CALL LIGHT IN REACH
[2024-12-14 21:15] LABS: BASOPHILS ABSOLUTE AUTO 0.02 K/mm3 (0.00-0.23); BASOPHILS PERCENT AUTO 0 % (0-2); EOSINOPHILS ABSOLUTE AUTO 0.00 K/mm3 (0.00-0.68); EOSINOPHILS PERCENT AUTO 0 % (0-6); Hematocrit 26.7 % (37.0-53.0); Hemoglobin 9.0 g/dL (13.5-17.5); IMMATURE GRAN ABSOLUTE AUTO 0.21 K/mm3 (0.00-0.10); IMMATURE GRAN PERCENT AUTO 2 % (0-1); LYMPHOCYTES ABSOLUTE AUTO 0.37 K/mm3 (0.84-5.20); LYMPHOCYTES PERCENT AUTO 3 % (21-46); MONOCYTES ABSOLUTE AUTO 0.71 K/mm3 (0.16-1.47); MONOCYTES PERCENT AUTO 6 % (4-13); Mean Corpuscular HGB Conc 33.7 g/dL (31.5-36.5); Mean Corpuscular Volume 93 fL (80-100); NEUTROPHILS ABSOLUTE AUTO 11.54 K/mm3 (1.96-9.15); NEUTROPHILS PERCENT AUTO 90 % (41-73); NRBC ABSOLUTE 0.00 K/mm3 (0.00-0.02); NRBC Auto 0.0 /100 WBC (0.0-0.2); RDW Coefficient Variation 16.3 % (11.7-14.2); RDW Standard Deviation 55.5 fL (35.1-46.3)
[2024-12-14 21:17] LABS: Platelet Count 24 K/mm3 (150-400)
[2024-12-15] VITALS (31 sets, daily range): BP systolic 98–138; BP diastolic 53–72
--- NOTE | 2024-12-15 05:53 | NUR ---
SHIFT SUMMARY PATIENT IS ALERT AND ORIENTED X3. OXYGEN REQUIREMENTS HAVE INCREASED THROUGH THE NIGHT. NOT ABLE TO TAKE ANY REAL BREAKS FROM BIPAP, SWITCHED TO MASK WITH REDIPORT FOR ORAL CARE. BIPAP SETTINGS NO / FIO2 75%. UNABLE TO GET SPUTUM SAMPLE, PT STATES COUGH IS NON PRODUCTIVE. HR SR 70s, BP STABLE, DENIES CP/PRESSURE. CAR PATENT AND DRAINING TO GRAVITY. SMALL BM THIS SHIFT. BED BATH DONE. REPOSITIONED Q2 HOURS. CALL LIGHT IN REACH
[2024-12-15] MEDS ORDERED: NS 250 ML IV PRN (07:35)
[2024-12-15 09:36] LABS: BASOPHILS ABSOLUTE AUTO 0.03 K/mm3 (0.00-0.23); BASOPHILS PERCENT AUTO 0 % (0-2); EOSINOPHILS ABSOLUTE AUTO 0.03 K/mm3 (0.00-0.68); EOSINOPHILS PERCENT AUTO 0 % (0-6); Hematocrit 30.1 % (37.0-53.0); Hemoglobin 9.9 g/dL (13.5-17.5); IMMATURE GRAN ABSOLUTE AUTO 0.37 K/mm3 (0.00-0.10); IMMATURE GRAN PERCENT AUTO 2 % (0-1); LYMPHOCYTES ABSOLUTE AUTO 0.52 K/mm3 (0.84-5.20); LYMPHOCYTES PERCENT AUTO 3 % (21-46); MONOCYTES ABSOLUTE AUTO 0.98 K/mm3 (0.16-1.47); MONOCYTES PERCENT AUTO 6 % (4-13); Mean Corpuscular HGB Conc 32.9 g/dL (31.5-36.5); Mean Corpuscular Volume 94 fL (80-100); NEUTROPHILS ABSOLUTE AUTO 15.93 K/mm3 (1.96-9.15); NEUTROPHILS PERCENT AUTO 89 % (41-73); NRBC ABSOLUTE 0.00 K/mm3 (0.00-0.02); NRBC Auto 0.0 /100 WBC (0.0-0.2); RDW Coefficient Variation 16.3 % (11.7-14.2); RDW Standard Deviation 55.5 fL (35.1-46.3)
[2024-12-15 09:44] LABS: Platelet Count 26 K/mm3 (150-400)
[2024-12-15 10:17] LABS: Alanine Aminotransfer (ALT/SGP 76.0 U/L (12-78); Albumin, Blood 2.5 g/dL (3.4-5.0); Albumin/Globulin Ratio 0.8 (0.8-1.8); Anion Gap 9.0 mmol/L (3-11); Aspartate Aminotrans (AST/SGOT 63.0 U/L (12-37); Bilirubin, Total 1.8 mg/dL (0.1-1.0); Blood Urea Nitrogen 37.0 mg/dL (8-24); CO2, Blood 29.0 mmol/L (21-32); Calcium, Blood 8.0 mg/dL (8.5-10.1); Chloride, Blood 109.0 mmol/L (98-108); Creatinine, Blood 0.99 mg/dL (0.60-1.20); Globulin, Blood 3.2 g/dL (2.2-4.0); Glucose, Blood 119.0 mg/dL (70-99); Potassium, Blood 3.0 mmol/L (3.5-5.5); Sodium, Blood 144.0 mmol/L (136-145); Total Protein, Blood 5.7 g/dL (6.4-8.2)
[2024-12-15 11:09] LABS: HEP-IND THROMBOCYTOPEN PF4,IGG 0.066 OD (<=0.399)
[2024-12-15] MEDS ORDERED: Fluticasone 0.05% Nasal Spray SCH (11:10)
--- NOTE | 2024-12-15 11:19 | NUR ---
PALLIATIVE CARE CONFERENCE: REVIEWED MEDICAL RECORD, SPOKE TO PRIMARY RN AND APPEALS ASSISTANT PRIOR TO VISIT. DAUGHTER BREEZY IS PRESENT. PT IS KNIK BUT IS ABLE TO UNDERSTAND CONVERSATION AND HAVE MEANINGFUL DISCUSSION. DR. DENNEY PRESENT AND ALSO DISCUSSED CODE STATUS. PT EDUCATED ON DNR/DNI STATUS. REQUESTED CLARIFICATION TO PT IF HE WOULD WANT INTUBATION IN EVENT RESPIRATORY STATUS WORSENED. PT STATES HE WOULD NOT WANT ANY INTERVENTIONS AT THIS TIME. STATES HE WOULD NOT WANT CHEST COMPRESSIONS OR INTUBATION. DAUGHTER IS SUPPORTIVE OF HER FATHER'S DECISION. SHE ASSISTED WITH COMPLETING POLST WHICH STATES DNR, SELECTIVE TREATMENT. PER JESSIE, HE WOULD WANT HIS DAUGHTER BREEZY TO MAKE DECISIONS FOR HIM IN THE EVENT HE IS UNABLE TO. PT HAS NO OTHER LIVING CHILDREN AND HIS IS . DISCUSSED SYMPTOM MANAGEMENT. PT STATES HE WOULD LIKE TO RESTART HIS FLONASE BECAUSE HIS NOSE IS STUFFED UP AND IS COMPLAINING OF DRY MOUTH. PT EDUCATED ON REASONS HE IS NPO AND AWAITING OXYGEN LEVEL TO BE DECREASED SO HE CAN PARTICIPATE IN SAFE SWALLOW EVAL. IN THE MEANTIME EDUCATED ON USE OF TOOTHETTES AND MOUTH MOISTURIZER TO MOISTEN MOUTH. UPDATED PRIMARY RN AND HE WILL CALL DR. DENNEY TO REQUEST FLONASE.
[2024-12-15] MEDS ORDERED: Potassium Chl 20MEQ/Water100ML 100 ML IV SCH (14:15)
--- NOTE | 2024-12-15 18:15 | NUR ---
Summary. Pt continues on airvo and bipap, respiratory status largely unchanged this shift. Pt up to recliner for several hours, able to ambulate short distances with walker and gait belt. Speech unable to assess today due to high 02 requirements. Daughter at bedside this morning and updated at end of shift. No acute events, pt desaturates easily when coughing or exerting himself. See chart for further details.
--- NOTE | 2024-12-15 19:47 | NUR ---
ASSESSMENT/ASSUMED CARE PT RESTING QUIETLY WITH AIRVO ON. OPENS EYES TO VERBAL STIMULI. [place]. ANSWERS QUESTIONS APPROP. FOLLOWS INSTRUCTIONS. DENIES PAIN OR DISCOMFORT. LUNGS COARSE AND DECREASED IN THE BASES. CHANGED FROM AIRVO 60L 81% TO BIPAP / RATE 12 FIO2 70% DUE TO SPO2 DOWN TO 77% WHILE TURNING AND MOVING IN BED. FIO2 INCREASED TO 100% UNTIL RECOVERED THEN TURNED BACK DOWN TO 70%. SPO2 CURRENTLY AT 96% WITH RESP RATE 16. HEART RATE IRREGULAR AT TIMES IN THE 70'S. BP STABLE 130/69 MAP 86. LOWER EXT AND DEPENDENT EDEMA NOTED. PULSES STRONG. SKIN WARM AND DRY BUT FRAGILE. BRUISING NOTED FROM FALLING AT HOME. IV 20G TO RIGHT AC LEAKING, DC'D INTACT. POWER GLIDE TO RIGHT UPPER ARM DRSG INTACT. SITE CLEAR. KCL INFUSING. UNABLE TO DRAW BLOOD FROM POWER GLIDE. CAR CATH PATENT DRAINING CLEAR YELLOW URINE. ATTENDS CD&I. FOAM DRSG REMOVED FROM COCCYX. SKIN TO COCCYX INTACT. SCD'S ON. ORAL CARE DONE AND PT REPOSITIONED TO RIGHT SIDE WITH HOB UP. PT HOLDIN CALL LIGHT IN HAND.
--- NOTE | 2024-12-15 20:17 | NUR ---
HS MEDS GIVEN AND PT BACK ON AIRVO 60L 81%. SPO2 96%
--- NOTE | 2024-12-15 20:33 | NUR ---
PT PLACED BACK ON BIPAP 04/03 RATE 12 FIO2 70%.
--- NOTE | 2024-12-15 21:35 | NUR ---
RT CHANGED BIPAP TO 02/07 FIO2 60%
[2024-12-16] VITALS (20 sets, daily range): BP systolic 110–154; BP diastolic 56–82
[2024-12-16 03:25] LABS: BASOPHILS ABSOLUTE AUTO 0.01 K/mm3 (0.00-0.23); BASOPHILS PERCENT AUTO 0 % (0-2); EOSINOPHILS ABSOLUTE AUTO 0.02 K/mm3 (0.00-0.68); EOSINOPHILS PERCENT AUTO 0 % (0-6); Hematocrit 27.8 % (37.0-53.0); Hemoglobin 9.1 g/dL (13.5-17.5); IMMATURE GRAN ABSOLUTE AUTO 0.24 K/mm3 (0.00-0.10); IMMATURE GRAN PERCENT AUTO 2 % (0-1); LYMPHOCYTES ABSOLUTE AUTO 0.42 K/mm3 (0.84-5.20); LYMPHOCYTES PERCENT AUTO 4 % (21-46); MONOCYTES ABSOLUTE AUTO 0.47 K/mm3 (0.16-1.47); MONOCYTES PERCENT AUTO 4 % (4-13); Mean Corpuscular HGB Conc 32.7 g/dL (31.5-36.5); Mean Corpuscular Volume 95 fL (80-100); NEUTROPHILS ABSOLUTE AUTO 9.57 K/mm3 (1.96-9.15); NEUTROPHILS PERCENT AUTO 89 % (41-73); NRBC ABSOLUTE 0.00 K/mm3 (0.00-0.02); NRBC Auto 0.0 /100 WBC (0.0-0.2); RDW Coefficient Variation 16.2 % (11.7-14.2); RDW Standard Deviation 55.7 fL (35.1-46.3)
[2024-12-16 03:35] LABS: Platelet Count 25 K/mm3 (150-400)
[2024-12-16 03:43] LABS: Alanine Aminotransfer (ALT/SGP 65.0 U/L (12-78); Albumin, Blood 2.4 g/dL (3.4-5.0); Albumin/Globulin Ratio 0.8 (0.8-1.8); Anion Gap 7.0 mmol/L (3-11); Aspartate Aminotrans (AST/SGOT 45.0 U/L (12-37); Bilirubin, Total 1.8 mg/dL (0.1-1.0); Blood Urea Nitrogen 38.0 mg/dL (8-24); CO2, Blood 32.0 mmol/L (21-32); Calcium, Blood 8.1 mg/dL (8.5-10.1); Chloride, Blood 111.0 mmol/L (98-108); Creatinine, Blood 0.9 mg/dL (0.60-1.20); Globulin, Blood 3.2 g/dL (2.2-4.0); Glucose, Blood 145.0 mg/dL (70-99); Magnesium, Blood 2.2 mg/dL (1.6-2.4); Phosphorus, Blood 2.7 mg/dL (2.5-4.9); Potassium, Blood 3.3 mmol/L (3.5-5.5); Sodium, Blood 147.0 mmol/L (136-145); Total Protein, Blood 5.6 g/dL (6.4-8.2)
[2024-12-16 13:17] LABS: Vancomycin, Trough 18.7 ug/mL (5.0-10.0)
--- NOTE | 2024-12-16 17:51 | NUR ---
PT AND DAUGHTER CALLED FOR PALLIATIVE CARE. PT STATES HE IS TIRED, DOESN'T WANT TO WEAR THE AIRVO ANY LONGER, AND WANTS TO PURSUE COMFORT NOW. DAUGHTER WAS TEARFUL, WE DISCUSSED DE-ESCALATING CARE. RECEIVED ORDERS FROM PHYSICIAN, BEDSIDE RN ALSO INVOLVED IN DISCUSSION. PT GIVEN ICE WATER PER HIS REQUEST AND WILL PLACE COMFORT CARE ORDERS AT THIS TIME.
[2024-12-16] MEDS ORDERED: Atropine Sulfate 1% Opth Soln 2ML BTL SL PRN (17:55)
[2024-12-16] MEDS ORDERED: Morphine Sulfate 20 MG/1ML 1 ML Oral Syringe SL PRN (17:55)
[2024-12-16] MEDS ORDERED: Morphine Sulfate 10 MG/ML 1MLSYR IV PRN (17:55)
[2024-12-16] MEDS ORDERED: LORazepam 2 MG/ML 1ML Injection IV PRN (18:00)
--- NOTE | 2024-12-16 18:10 | NUR ---
SUMMARY PT A/O TO PERSON, PLACE, AND FAMILY. HAS BEEN ON AND OFF BIPAP AND AIRVO ALL DAY. WAS ABLE TO SIT UP IN CHAIR FOR CLOSE TO 2 HOURS BUT HAD TO USE THE LIFT TO GET HIM THERE DUE TO OXYGEN DEMANDS AND DESATS INTO THE 70'S QUICKLY WITH ANY EXERTION. THIS AFTERNOON PT HAS DECIDED HE WANTS TO BE ON COMFORT CARE. HE DOES NOT WANT TO KEEP BIPAP OR AIRVO ON. CALLED DAUGHTER LUCHO WHO CAME TO THE BEDSIDE QUICKLY POSSIBLE. YOGESH PALLIATIVE CARE RN ALSO TO THE BEDSIDE AND HAD DISCUSSION. PT IS ADAMANT HE WANTS TO GO ON COMFORT CARE. NOTIFIED DR. RAMOS AND DR. BRAVO. PT ENJOYED A PUDDING AND SOME WATER BEFORE TAKING OXYGEN OFF AND IS NOW UNRESPONSIVE. DAUGHTER AT BEDSIDE. MEDICATING FOR COMFORT.
--- NOTE | 2024-12-16 19:32 | NUR ---
[address] GUILHERME VILLEDA IN REGARDS TO COMFORT CARE PATIENT PASSING, CONFIRMED WITH X2 NURSE AUSCULTATION. PATIENT DAUGHTER WENT HOME WITH PATIENT BELONGINGS INCLUDING PATIENT CELL PHONE AND WHEELCHAIR WELL [id number] ITEMS.
== END 2024-12-16 19:04 | DRG 871 ==
LOC: ER 06:38 → PCU 10:52 → ICUE 10:52 → EDBEDREQ 12:31 → ICUE 17:01
PROVIDERS: Emergency Medicine; Student in an Organized Health Care Education/Training Program; ADMIT Internal Medicine
PROC: 5A0935A Assistance with Respiratory Ventilation, Less than 24 Consecutive Hours, High Flow/Velocity Cannula (ICD-10-PCS; 2024-12-11)
PROC: 5A09357 Assistance with Respiratory Ventilation, Less than 24 Consecutive Hours, Continuous Positive Airway Pressure (ICD-10-PCS; 2024-12-11)
PROC: 0T9B70Z Drainage of Bladder with Drainage Device, Via Natural or Artificial Opening (ICD-10-PCS; 2024-12-12)
PROC: 3E03329 Introduction of Other Anti-infective into Peripheral Vein, Percutaneous Approach (ICD-10-PCS; principal; 2024-12-16)
DX: A41.59 Other Gram-negative sepsis (principal); G92.8 Other toxic encephalopathy; J96.01 Acute respiratory failure with hypoxia; I50.41 Acute combined systolic (congestive) and diastolic (congestive) heart failure; I21.A1 Myocardial infarction type 2; J15.69 Pneumonia due to other Gram-negative bacteria; J44.0 Chronic obstructive pulmonary disease with (acute) lower respiratory infection; J44.1 Chronic obstructive pulmonary disease with (acute) exacerbation; Z66 Do not resuscitate; R29.6 Repeated falls; J84.10 Pulmonary fibrosis, unspecified; I25.10 Atherosclerotic heart disease of native coronary artery without angina pectoris; I95.89 Other hypotension; K74.60 Unspecified cirrhosis of liver; D69.6 Thrombocytopenia, unspecified; I27.20 Pulmonary hypertension, unspecified; E87.6 Hypokalemia; R33.9 Retention of urine, unspecified; D64.9 Anemia, unspecified; Z87.891 Personal history of nicotine dependence; Z95.5 Presence of coronary angioplasty implant and graft; Z95.1 Presence of aortocoronary bypass graft; Z98.890 Other specified postprocedural states; Z79.52 Long term (current) use of systemic steroids; Z79.51 Long term (current) use of inhaled steroids; Z79.82 Long term (current) use of aspirin; Z79.899 Other long term (current) drug therapy
CPT/HCPCS: 0202U; 36415; 51702; 51798; 70450; 71045; 71046; 71260; 76705; 80048; 80053; 80202; 81001; 82803; 82947; 83605; 83735; 83880; 84100; 84132; 84145; 84484; 85025; 85060; 85384; 85610; 85730; 86022; 87040; 87070; 87205; 87449; 87637; 93005; 93010; 94640; 94660; 94664; 94760; 94762; 96365; 96375; 97110; 97161; 97530; 99285-25; A6590; A9270; C1751; C8929; J0456; J0696; J1650; J1720; J1938; J1956; J2060; J2185; J2270; J2919; J3373; J3480; J7030; J7040; J7050; Q9957; Q9967